=== PATIENT | female | born 1935 | race Two or more races ===

== ENCOUNTER 2018-06-19 22:52 | Emergency (ER) | payer OTHER, MEDICAID ==
[~2018-06-19] VITALS: Ht 157.5 cm; Wt 88.5 kg
--- NOTE | 2018-06-19 22:52 | NUR ---
BBSELF FROM HOME C/C EPIGASTRIC DISCOMFORT RADIATING TO NECK X2 HRS. VSS NO ACUTE DISTRESS AT THIS TIME. VSS NO ACUTE DISTRESS AT THIS TIME. WILL CONTINUE TO MONITOR FOR ANY CHANGES DURING THE SHIFT.
--- NOTE | 2018-06-19 22:53 | NUR ---
ER MD DRAPER AT BEDSIDE FOR EVAL
[2018-06-19] MEDS ORDERED: LIDOCAINE VISCOUS 2% UD 15 ML UDC MM ONE (23:30)
[2018-06-19] MEDS ORDERED: ONDANSETRON HCL/PF 4 MG/2 ML VIAL IVP ONE (23:30)
[2018-06-19] MEDS ORDERED: MAG HYDROX/AL HYDROX/SIMETH 30 ML UDC PO ONE (23:30)
[2018-06-19] MEDS ORDERED: MECLIZINE HCL 25 MG TABLET PO ONE (23:30)
[2018-06-19] MEDS ORDERED: LIDOCAINE VISCOUS 2% UD 15 ML UDC ONE (23:43)
[2018-06-19] MEDS ORDERED: MAG HYDROX/AL HYDROX/SIMETH 30 ML UDC ONE (23:43)
[2018-06-19] MEDS ORDERED: ONDANSETRON HCL/PF 4 MG/2 ML VIAL ONE (23:43)
[2018-06-19] MEDS ORDERED: MECLIZINE HCL 25 MG TABLET ONE (23:43)
--- NOTE | 2018-06-19 23:43 | NUR ---
[facility]PO[facility] WATERMASTER PATRICK AND OPENED A NEW CASE WITH HIM. AWAITING TO CALL BACK FOR MD TO MD REPORT.
[2018-06-19 23:55] LABS: BASOPHILS # (AUTO) 0.1 /CMM (0.0-0.2); BASOPHILS % (AUTO) 0.8 % (0.0-2.0); EOSINOPHILS % (AUTO) 2.4 % (0.0-6.0); HEMATOCRIT 40 % (33-45); HEMOGLOBIN 12.7 g/dL (11.5-14.8); LYMPHOCYTES # (AUTO) 2.8 /CMM (0.8-4.8); LYMPHOCYTES % (AUTO) 40.7 % (20.0-44.0); MEAN CORPUSCULAR HEMOGLOBIN 27 PG (26.0-33.0); MEAN CORPUSCULAR HGB CONC 32 g/dl (31.0-36.0); MEAN CORPUSCULAR VOLUME 86 fL (82-100); MONOCYTES # (AUTO) 0.4 /CMM (0.1-1.30); MONOCYTES % (AUTO) 5.7 % (2.0-12.0); NEUTROPHILS # (AUTO) 3.5 /CMM (1.8-8.9); NEUTROPHILS % (AUTO) 50.4 % (43.0-81.0); PLATELET COUNT (AUTO) 268 /CMM (150-450); RDW COEFFICIENT OF VARIATION 13.6 (11.5-15.0); RED BLOOD CELL COUNT(AUTO) 4.68 MIL/uL (4.0-5.2); WHITE BLOOD COUNT (AUTO) 6.9 K/uL (4.3-11.0)
[2018-06-20 00:07] LABS: CALCIUM, SERUM 9.1 mg/dL (8.5-10.1); CARBON DIOXIDE 27 mmol/L (21-32); CHLORIDE 106 mmol/L (98-107); CREATININE 0.8 mg/dL (0.6-1.3); GLUCOSE 102 mg/dL (74-106); POTASSIUM 4.1 mmol/L (3.5-5.1); SODIUM SERUM 141 mmol/L (136-145); UREA NITROGEN, BLOOD 16 mg/dL (7-18)
[2018-06-20 00:11] LABS: INR 0.93 (0.87-1.13)
[2018-06-20 00:12] LABS: ALANINE AMINOTRANSFERASE 23 U/L (12-78); ALBUMIN 3.5 g/dL (3.4-5.0); ALKALINE PHOSPHATASE 43 U/L (46-116); ASPARTATE AMINOTRANSFERASE 25 U/L (15-37); BILIRUBIN,DIRECT 0.1 mg/dL (0.0-0.2); BILIRUBIN,TOTAL 0.4 mg/dL (0.2-1.0); LIPASE 151 U/L (73-393); TOTAL PROTEIN, SERUM 7.3 g/dL (6.4-8.2)
[2018-06-20 00:15] LABS: TROPONIN I < 0.017 ng/mL (0.00-0.056)
[2018-06-20 00:42] VITALS: BP 136/54
== END 2018-06-20 00:43 | disposition home or self-care (01) ==
LOC: ER 22:53
DX: K21.9 Gastro-esophageal reflux disease without esophagitis (principal); R42 Dizziness and giddiness; E11.9 Type 2 diabetes mellitus without complications; I10 Essential (primary) hypertension
CPT/HCPCS: 36415; 70450; 71045; 80048; 80076; 83690; 84484; 85025; 85730; 93005; 96374; 99285; A4606; J2405; J8597; Z7610

== ENCOUNTER 2023-03-28 20:48 | Emergency (ER) | payer OTHER ==
[~2023-03-28] VITALS: Ht 165.1 cm; Wt 71.2 kg
--- NOTE | 2023-03-28 20:52 | NUR ---
MELL FROM HOME C/O DIZZINESS SINCE THUSDAY, HAD GLF & L HUONG FX
--- NOTE | 2023-03-28 21:07 | NUR ---
SARAHI-IN - LAW, JEWEL SON, YVETTE: [phone]
[2023-03-28] MEDS ORDERED: MECLIZINE HCL 12.5 MG TABLET PO ONE (21:30)
[2023-03-28] MEDS ORDERED: MECLIZINE HCL 25 MG TABLET ONE (21:33)
[2023-03-28 22:03] LABS: BASOPHILS % (AUTO) 0.4 % (0.0-2.0); HEMATOCRIT 32 % (33-45); HEMOGLOBIN 10.1 g/dL (11.5-14.8); LYMPHOCYTES # (AUTO) 1.6 K/uL (0.8-4.8); LYMPHOCYTES % (AUTO) 22.3 % (20.0-44.0); MEAN CORPUSCULAR HGB CONC 32 g/dl (31.0-36.0); MEAN CORPUSCULAR VOLUME 83 fL (82-100); MONOCYTES # (AUTO) 0.6 K/uL (0.1-1.30); MONOCYTES % (AUTO) 8.1 % (2.0-12.0); NEUTROPHILS # (AUTO) 4.8 K/uL (1.8-8.9); NEUTROPHILS % (AUTO) 67.2 % (43.0-81.0); PLATELET COUNT (AUTO) 191 K/uL (150-450); RED BLOOD CELL COUNT(AUTO) 3.83 MIL/uL (4.0-5.2); WHITE BLOOD COUNT (AUTO) 7.2 K/uL (4.3-11.0)
[2023-03-28 22:09] LABS: CALCIUM, SERUM 9.2 mg/dL (8.5-10.1); CARBON DIOXIDE 30 mmol/L (21-32); CHLORIDE 104 mmol/L (98-107); GLUCOSE 118 mg/dL (74-106); POTASSIUM 3.8 mmol/L (3.5-5.1); SODIUM SERUM 142 mmol/L (136-145); UREA NITROGEN, BLOOD 25 mg/dL (7-18)
[2023-03-28] MEDS ORDERED: DIAZEPAM 5 MG TABLET ONE (22:25)
[2023-03-28] MEDS ORDERED: DIAZEPAM 5 MG TABLET PO ONE (22:30)
[2023-03-28] MEDS ORDERED: ONDANSETRON HCL/PF 4 MG/2 ML VIAL IV ONE (23:30)
--- NOTE | 2023-03-28 23:31 | NUR ---
PT TAKEN TO CT VIA [facility]
--- NOTE | 2023-03-28 23:31 | NUR ---
PT TAKEN TO CT
[2023-03-28] MEDS ORDERED: ONDANSETRON HCL/PF 4 MG/2 ML VIAL ONE (23:39)
--- NOTE | 2023-03-29 | NUR ---
PT RETURNED FROM CT
--- NOTE | 2023-03-29 01:41 | NUR ---
SPOKE TO FABIÁN AT [facility]. AWAITING FOR MD'S CALL BACK.
--- NOTE | 2023-03-29 01:45 | NUR ---
DR PIEDRA AT [facility] ON THE PHONE WITH DR KING
--- NOTE | 2023-03-29 01:50 | NUR ---
COVID ANTIGEN SWAB COLLECTED AND SENT TO LAB
--- NOTE | 2023-03-29 02:03 | NUR ---
JESSICA OVIEDO AT [facility]: PT GOT ACCEPTED AT [facility] UNDER CARE OF JUDSON DAN. GOING TO ER. NUMBER FOR REPORT: [phone] ALS BY GEETHA HENSLEY, ETA: [id number]
[2023-03-29 02:06] VITALS: BP 148/60
--- NOTE | 2023-03-29 02:11 | NUR ---
PATRICK, SON MADE AWARE OF THE TRANSFER
--- NOTE | 2023-03-29 02:13 | NUR ---
REPORT GIVEN TO LETICIA MANN @[email or web address]
--- NOTE | 2023-03-29 03:22 | NUR ---
[facility] AT BEDSIDE TO TAKE PT TO [facility]
== END 2023-03-29 03:31 | disposition short-term general hospital (02) ==
LOC: ER 20:50
DX: R42 Dizziness and giddiness (principal); I10 Essential (primary) hypertension; E11.9 Type 2 diabetes mellitus without complications; Z98.890 Other specified postprocedural states; Z20.822 Contact with and (suspected) exposure to COVID-19
CPT/HCPCS: 99285; 96374; 70450; 93005; 85025; 80048; 36415; 87426; J8597; J2405; C9803